=== PATIENT | female | born 2000 | race African-American/Black ===

== ENCOUNTER 2025-04-04 16:10 | Outpatient (CLI) | payer BC, SELFPAY ==
--- OUTSIDE RECORDS SUMMARY | 2025-04-04 16:19 | XMS_ITS | Encounter Summary ---
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 Phone Unavailable Primary Care Provider Unavailabl e Encounter Details Date Type Department Care Team (Late st Contact Info) Description 1999 Inpatient Historical Harvey Hernandez MD [address] [place], [place] [id number] [place] Single liveborn, born in hospital, delivered without mention of delivery (Primary Dx) Social History Tobacco Use Types Packs/Day Years Used Date Smoking Tobacco: Never Assessed Comments Unknown Sex and Gender Information Value Date Recorded Sex Assigned at Not on file 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
--- OUTSIDE RECORDS SUMMARY | 2025-04-04 16:19 | XMS_ITS | Clinical Summary ---
Author Organization [facility] Address [address] [place] [address] Care Team Providers Care Rn Surgery Name Role Phone None, Provider MD Primary Care Provider Unavaila ble Allergies No known active allergies Medications famotidine 40 MG tablet Take 0.5 tablets (20 mg total) by mouth 2 (two) times daily. 10 tablet 9 Active methylPREDNISol one, DIPAK, (MEDROL DOSEPAK) 4 MG tablet Take 1 tablet (4 mg total) by mouth 2 (two) times daily. Follow package directions 1 each 5 Active Family History Medical History Relation Comments None Father None Mother Relation Status Comments Father Alive Mother Alive Social History Tobacco Use Types Packs/Day Years Used Date Smoking Tobacco: Never Smokeless Tobacco: Never Alcohol Use Standard Drinks/Week Comments No 0 (1 standard drink = 0.6 oz pur e alcohol) AUDIT-C Answer Date Recorded Frequency of Alcohol Consumption Never 12/03/2018 Average Number of Drinks Not on file 019 Frequency of Binge Drinking Not on file 11/17 Comments No Sex and Gender Information Value Date Recorded Sex Assigned at Female 10/23/2024 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 Legal Sex Female 1:20 PM CDT Gender Identity Not on file Sexual Orientation Not on file Last Filed Vital Signs Vital Sign Reading Time Taken Comments Blood Pressure 111/62 10/23/2024 1:31 PM MANUFACTURING TECHNOLOGY ANALYST Pulse 107 10/23/2024 1:31 PM MANUFACTURING TECHNOLOGY ANALYST Temperature 36.9 C (98.4 F) 10/23/2024 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 Respiratory Rate 20 10/23/2024 1:31 PM MANUFACTURING TECHNOLOGY ANALYST Oxygen Saturation 100% 10/23/2024 1:31 PM MANUFACTURING TECHNOLOGY ANALYST Inhaled Oxygen Concentration - - Weight 90.7 kg (200 lb) 10/23/2024 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 Height 167.6 cm (5' 6) 10/23/2024 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 Body Mass Index 32.28 10/23/2024 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 Plan of Treatment Health Maintenance Due Date Last Done Comments Annual Physical 2002 HPV Vaccines (1 - 3-dose series) 2014 Hepatitis C 2017 DTaP, Tdap and Td Vaccines ( 1 - Tdap) 2018 Hepatitis B Vaccines (1 of 3 - 19+ 3-dose series) 2018 Pneumococcal Vaccine: Pediatrics (0 to 5 Years) and At-Risk Patients (6 to 49 Years) (1 of 2 - PCV) 2018 COVID-19 Vaccine (2023-2 5 season) 2024 05/30/2021, 05/09/2021 Cervical Cancer Screening Pa p Smear (Age 21 to 29) Every 3 Years 04/26/2025 04/26/2022 Cervical Cancer Screening 04/26/2025 Meningococcal B Vaccine Aged Out No l onger eligible based on patient's age to complete this topic Meningococcal Vaccine Aged Out No kayleigh sadiq eligible based on patient's age to complete this topic RSV Immunizations Under 20 Months Aged Out No longer eligible b ased on patient's age to complete this topic Insurance [facility] Care Teams Rn Surgery Relationship Specialty Start Date End Date None, Provider, PCP - General 12/03/18
--- OUTSIDE RECORDS SUMMARY | 2025-04-04 16:19 | XMS_ITS | Clinical Summary ---
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
[2025-04-04 19:35] LABS: HIV 1/2 Ab P24 Ag Result Negative (Negative)
[2025-04-05 10:09] LABS: Syphilis IgG/IgM Antibody Non-Reactive (Nonreactive)
[2025-04-05 10:13] LABS: Hepatitis B Surface Antigen Negative (Negative)
== END 2025-04-04 16:11 | disposition home or self-care (01) ==
LOC: ANHLAB 16:18
PROVIDERS: Visit Provider Obstetrics & Gynecology
DX: Z11.3 Encounter for screening for infections with a predominantly sexual mode of transmission (principal)
CPT/HCPCS: 36415; 86593; 86703; 86803; 87340; G0432